=== PATIENT | female | born 1980 | race American Indian/Alaskan Native ===

== ENCOUNTER 2016-12-17 17:42 | Emergency (ER) | payer OTHER ==
[2016-12-17 22:13] VITALS: BP 112/72
[2016-12-17] MEDS ORDERED: MOTRIN PO ONE (22:19)
--- NOTE | 2016-12-17 22:19 | Emergency Department Report ---
Abscess Boil HPI - HPI Chief Complaint: Skin/Abscess/Foreign Body Stated Complaint: FINGER INFECTION Time Seen by Provider: 12/17/16 22:16 Duration: 2 Days Location: Upper Extremity (distal left ring finger near nail edge) History: Yes Pain, Yes Purulent Drainage, No Fever, No Numbness, No Foreign Body , No Previous History, No Insect Bite HPI: 36-year-old female presents with complaint of pain and swelling near distal edge of right distal ring finger. Patient has a visible paronychia. Home Medications: Previous Rx's Medication Instructions Recorded Last Taken Type Acetaminophen/Codeine [Tylenol 1 tab PO Q6H PRN #4 tab 12/17/16 Unknown Rx /Codeine # 3 tab] Ibuprofen [Motrin] 800 mg PO Q8HR PRN #30 tablet 12/17/16 Unknown Rx Sulfamethoxazole/Trimethoprim 1 each PO BID #14 tablet 12/17/16 Unknown Rx [Bactrim DS TAB] Allergies/Adverse Reactions: Allergies Allergy/AdvReac Type Severity Reaction Status Date / Time No Known Allergies Allergy Unverified 12/17/16 22:15 ED Review of Systems ROS: Stated complaint: FINGER INFECTION Other details as noted in HPI Constitutional: denies: chills, fever Eyes: denies: eye pain, eye discharge, vision change ENT: denies: ear pain, throat pain Respiratory: denies: cough, shortness of breath, wheezing Cardiovascular: denies: chest pain, palpitations Endocrine: no symptoms reported Gastrointestinal: denies: abdominal pain, nausea, diarrhea Genitourinary: denies: urgency, dysuria, discharge Musculoskeletal: denies: back pain, joint swelling, arthralgia Skin: as per HPI. denies: rash, lesions Neurological: denies: headache, weakness, paresthesias Psychiatric: denies: anxiety, depression Hematological/Lymphatic: denies: easy bleeding, easy bruising ED Past Medical Hx - Past Medical History Hx Diabetes: Yes (gestational) Additional medical history: gestational hypertension - Surgical History Additional Surgical History: 2 c-sections - Social History Smoking Status: Current Every Day Smoker Substance Use Type: None - Medications Home Medications: Home Medications Medication Instructions Recorded Confirmed Last Taken Type Acetaminophen/Codeine [Tylenol 1 tab PO Q6H PRN #4 tab 12/17/16 Unknown Rx /Codeine # 3 tab] Ibuprofen [Motrin] 800 mg PO Q8HR PRN #30 tablet 12/17/16 Unknown Rx Sulfamethoxazole/Trimethoprim 1 each PO BID #14 tablet 12/17/16 Unknown Rx [Bactrim DS TAB] ED Abscess Boil Physical Exam - Exam General: Vital signs noted. No distress. Alert and acting appropriately. Size: 2 cm Exam: Yes Tenderness, Yes Fluctuance, No Surrounding Cellulites/Erythema, No Lymphangitis, No Crepitation, No Heart Murmur, No Normal Neurologic Exam, No Normal Circulation I & D Note - I & D Note I & D Note: Area infiltrated with lidocaine without epinephrine 1% approximately 1 mL. Good local anesthesia achieved. Small stab incision to paronychia. Tiny amount of purulent drainage, wound squeezed and paronychia decompressed. Patient felt significant relief. Minimal bleeding. Covered with triple antibiotic ointment and Band-Aid. Good decompression of paronychia achieved. ED Course Vital Signs 12/17/16 12/17/16 18:23 22:12 Temperature 99.2 F 98.3 F Pulse Rate 62 68 Respiratory 16 20 Rate Blood Pressure 111/69 Blood Pressure 112/72 [Left] O2 Sat by Pulse 99 100 Oximetry Critical care attestation.: If time is entered above; I have spent that time in minutes in the direct care of this critically ill patient, excluding procedure time. ED Medical Decision Making - Medical Decision Making A/P: Right distal ring finger paronychia 1-successfully incised and drained 2-Bactrim twice a day 7 days 3-Motrin when necessary, Tylenol 3 very very short course 4-I advised patient to return to the ED if she experiences reaccumulation of abscess significant pain and ability to range finger joints or fevers or chills. Finger joints range of motion intact at DIP PIP and MCP. Distal capillary refill intact. There is no clinical felon at fingertip tuft on exam. ED Disposition Clinical Impression: Paronychia Disposition: - TO HOME OR SELFCARE Is pt being admited?: No Does the pt Need Aspirin: No Condition: Stable Instructions: Paronychia (ED), Abscess Incision and Drainage (ED), Acute Wound Care (ED) Prescriptions: Acetaminophen/Codeine [Tylenol /Codeine # 3 tab] 1 tab PO Q6H PRN #4 tab PRN Reason: Pain Ibuprofen [Motrin] 800 mg PO Q8HR PRN #30 tablet PRN Reason: Pain Sulfamethoxazole/Trimethoprim [Bactrim DS TAB] 1 each PO BID #14 tablet Referrals: MADELAINE OLIVEROS MD [Staff Physician] - 3-5 Days Forms: Work/School Release Form(ED) Time of Disposition: 22:19
[2016-12-17] MEDS ORDERED: XYLOCAINE 1% MPF 5 mL INFILTRATI ONE (22:20)
[2016-12-17] MEDS ORDERED: TRIPLE ANTIBIOTIC TP ONE (22:32)
== END 2016-12-17 23:00 | disposition home or self-care (01) ==
LOC: ED 17:42
DX: L03.012 Cellulitis of left finger (principal); F17.200 Nicotine dependence, unspecified, uncomplicated
CPT/HCPCS: 82962; 99283; A6250